=== PATIENT | male | born 1945 | race African-American/Black ===

== ENCOUNTER 2018-02-23 10:36 | Inpatient (IN) | payer MEDICARE ==
[~2018-02-23] VITALS: Ht 175.3 cm; Wt 93.9 kg
[2018-02-23 12:27] LABS: BASOPHILS % 0.8 % (0.0-1.0); EOSINOPHILS # (AUTO) 0.1 (0.0-0.4); EOSINOPHILS % 2.1 % (0.0-6.0); HEMATOCRIT 43.5 % (38.2-49.6); HEMOGLOBIN 14.3 g/dL (14.0-18.0); LYMPHOCYTES # (AUTO) 2.2 (1.0-3.2); LYMPHOCYTES % 42.6 % (18.0-39.1); MEAN CORPUSCULAR HGB CONC 32.9 g/dL (31-35); MEAN CORPUSCULAR VOLUME 94.2 fL (81-99); MONOCYTES # (AUTO) 0.6 (0.2-0.8); MONOCYTES % 11.4 % (4.4-11.3); NEUTROPHILS # (AUTO) 2.2 (2.1-6.9); NEUTROPHILS % 42.9 % (38.7-80.0); PLATELET COUNT 173 x10e3/uL (140-360); RED BLOOD COUNT 4.62 x10e6/uL (4.3-5.7); RED CELL DISTRIBUTION WIDTH 13.7 % (11.7-14.4)
[2018-02-23] MEDS ORDERED: ASPIRIN 325 MG TAB PO ONE (12:30)
[2018-02-23 12:41] LABS: ALANINE AMINOTRANSFERASE 68 IU/L (0-55); ALBUMIN/GLOBULIN RATIO 1.2 (0.8-2.0); ALKALINE PHOSPHATASE 42 IU/L (40-150); ANION GAP 12.6 mmol/L (8-16); BLOOD UREA NITROGEN 23 mg/dL (7-26); BUN/CREATININE RATIO 18 (6-25); CALCIUM 9.6 mg/dL (8.4-10.2); CARBON DIOXIDE 25 mmol/L (22-29); CHLORIDE 106 mmol/L (98-107); CREATINE KINASE 554 IU/L (30-200); CREATININE, SERUM 1.26 mg/dL (0.72-1.25); EST GLOMERULAR FILTRATION RATE > 60 ML/MIN (60-); GLUCOSE 112 mg/dL (74-118); POTASSIUM 3.6 mmol/L (3.5-5.1); SODIUM 140 mmol/L (136-145)
--- NOTE | 2018-02-23 12:50 | Diagnostic Imaging Report ---
PROCEDURE: X-RAY CHEST, TWO VIEWS COMPARISON: None. INDICATIONS: CHEST PAIN FINDINGS: The lungs are well-inflated. No focal airspace consolidation or pneumothorax. Trace bilateral pleural effusions versus basal pleural thickening.. Cardiomegaly with prominence of the central pulmonary vasculature. No acute osseous abnormality. CONCLUSION: Cardiomegaly with pulmonary venous congestion. Dictated by: Luis Brito M.D. on 02/23/2018 at 12:53 Electronically approved by: Luis Brito M.D. on 02/23/2018 at 12:53
[2018-02-23] MEDS ORDERED: HYDRALAZINE HCL 20 MG/ML VIAL IV STA (13:11)
[2018-02-23] MEDS: FUROSEMIDE INJ 10 MG/ML 4 ML VIAL IV SCH ×2 (14:23→15:48)
[2018-02-23] MEDS ORDERED: HYDRALAZINE HCL 20 MG/ML VIAL IV PRN (15:00)
[2018-02-23] MEDS ORDERED: LISINOPRIL10 MG PO (15:49)
[2018-02-23 15:59] VITALS: BP 153/77
[2018-02-23 16:03] VITALS: BP 153/77
[2018-02-23] MEDS ORDERED: FUROSEMIDE INJ 10 MG/ML 4 ML VIAL IV NR (17:00)
[2018-02-23] MEDS ORDERED: POTASSIUM CHLORIDE 20 MEQ TAB CR PO NR (17:00)
[2018-02-23 17:11] LABS: FREE THYROXINE INDEX 2.6463 (1.4-3.8); THYROID STIMULATING HORMONE 2.558 uIU/mL (0.350-4.940)
[2018-02-23] MEDS: CARVEDILOL 3.125 MG TAB PO SCH (17:16)
--- NOTE | 2018-02-23 18:54 | Consultation ---
DATE OF CONSULTATION: February 23, 2018 HISTORY OF PRESENT ILLNESS: This is a 72-year-old male with history of hypertension. The patient presents to [facility] ER with complaints of shortness of breath x3 weeks. Chest x-ray noted with pulmonary congestion and elevated BNP, so cardiology was consulted. The patient seen in room in no acute distress. Reports for the past 3 weeks he has been having progressive shortness of breath, early satiety, dry cough and lower extremity edema. He went to go see his PCP, Dr. Madi Ventura, and apparently he had an x-ray done and results were going to be given him in several days; however, the patient's symptoms progressed and this morning he decided that he needed to come to the ER for further evaluation. The patient denies any chest pains; however, as mentioned he does complain of lower extremity, early satiety, dry cough, and one-pillow orthopnea. PAST MEDICAL HISTORY: Hypertension. PAST SURGICAL HISTORY: Small bowel obstruction in April 2017, status post lysis of adhesions. Bilateral total knee arthroplasty. Bilateral cataracts. SOCIAL HISTORY: He is employed at [employer]. He works in the [employer]. He is . He denies any alcohol or tobacco use. FAMILY HISTORY: His mother is at the age of 60, unknown reason. Father , however, unknown. Has one sister with history of diabetes. He has one brother with history of prostate cancer. HOME MEDICATIONS: Aspirin 81 mg and lisinopril 10 mg once a day. ALLERGIES: NO KNOWN DRUG ALLERGIES. REVIEW OF SYSTEMS: GENERAL: Denies any weight gains, weight changes, any fevers, chills, and he denies skin holliday no rashes or bruises noted. HEENT: Denies any head trauma, any vision changes. No nausea or vomiting. No blurry vision or double vision. No hearing loss. No vertigo or tinnitus. No nasal stuffiness, sneezing, epistaxis. Denies any sore throat, swollen neck, bleeding gums. CARDIAC: Denies any chest pains, positive for dyspnea on exertion as above. Positive for orthopnea. Positive for PND. Positive for lower extremity edema. RESPIRATORY: Positive for shortness of breath. Positive for cough, nonproductive. He had one episode of hemoptysis on Thursday after a coughing spell, no more since then. GI: Denies any nausea or vomiting, any diarrhea or constipation. Denies any melena or hematemesis. : Positive for frequency, urgency, nocturia. Denies any dysuria. MUSCULOVASCULAR: Positive for lower extremity edema. Denies any claudication. MUSCULOSKELETAL: Generalized joint pains, especially bilateral knees. NEUROLOGIC: Denies any numbness, tingling, tremors, paralysis, fainting, blackouts or seizures. HEMATOLOGY: Denies any bruising. ENDOCRINE: Denies any heat or cold intolerance or any polyuria or polydipsia, polyphagia. PHYSICAL EXAMINATION GENERAL: Height 69 inches, weight 207 pounds. Appears to age, a well-developed man in no acute distress. CURRENT VITAL SIGNS: Temperature 97, pulse 100, respiratory rate 18, blood pressure 133/77. Sat 99% on room air. SKIN: No rashes or bruises noted. HEENT: Normocephalic. Pupils are equal and reactive. Extraocular movement intact. No thyromegaly noted. Oral mucosa is pink. Positive for JVD. No carotid bruits noted. HEART: Regular rate and rhythm. Soft systolic murmur heard in the right upper sternal border. PMI above 5th intercostal space. LUNGS: Bilateral breath sounds with crackles, 2/3 down bilaterally. ABDOMEN: Soft. Nontender. Nondistended. No organomegaly noted. MUSCULOSKELETAL: Good muscle strength throughout. There is lower extremity edema about +2. VASCULAR: There are +2 bilateral radial pulses, +1 DP and PT pulses bilaterally. NEURO: Cranial nerves II through XII seem intact. LABORATORY DATA: White count 5.1, hemoglobin 14, hematocrit 43, platelets 173,000, sodium 140, potassium 3.9, chloride 106, bicarb 25, BUN 23, creatinine 1.29. Troponin initial 0.082. BNP 936. IMAGING: Chest x-ray showing cardiomegaly with pulmonary venous congestion. EKGs showing sinus tachycardia with inverted T waves in inferior leads and also in lateral leads. ASSESSMENT 1. Acute systolic heart failure. 2. Hypertension. 3. Abnormal EKG. 4. Coronary artery disease very likely in this patient. PLAN: The patient presents with progressive shortness of breath, orthopnea and PND, lower extremity edema consistent with acute systolic heart failure with elevated BNP and pulmonary congestion on x-ray. The patient will be started on heart failure therapy, lisinopril 5 mg daily, Coreg 3.125 mg b.i.d. Lasix has been initiated. Continue Lasix therapy. Currently the patient reports breathing better since initial Lasix given. Will obtain echo which has been ordered. Will be read by cardiology attending. Continue telemetry monitoring. Will obtain a lipid panel and a TSH. Also, given the patient's symptoms and abnormal EKG, will plan for stress test tomorrow. Thank you very much for this consult. Will continue to evaluate the patient and adjust cardiac therapy as course takes. SEEN AND EXAMINED ADVANCED CHF, MOST LIKELY 2/2 TO CAD Dictated by: Luis Valdes NP Job#: [id number] SABI
[2018-02-23 20:00] VITALS: BP_SYST 114; BP_SYST 135; BP_DIAS 62; BP_DIAS 66
[2018-02-23] MEDS: LEVALBUTEROL HCL SOLN NEBU 0.63 MG/3 ML NEB INH SCH (20:00)
[2018-02-23 20:30] VITALS: BP 114/66
[2018-02-23] MEDS: HEPARIN SOD (PORCINE) 5,000 UNIT/ML VIAL SC SCH (20:30)
[2018-02-23] MEDS: BENZONATATE 100 MG CAP PO SCH (20:30)
[2018-02-23 21:06] LABS: CREATINE KINASE MB 7.4 ng/mL (0-5.0)
[2018-02-24] VITALS (7 sets, daily range): BP systolic 105–161; BP diastolic 66–97
[2018-02-24] MEDS: LEVALBUTEROL HCL SOLN NEBU 0.63 MG/3 ML NEB INH SCH ×4 (02:00→20:32)
[2018-02-24 06:42] LABS: BASOPHILS % 0.9 % (0.0-1.0); EOSINOPHILS # (AUTO) 0.2 (0.0-0.4); EOSINOPHILS % 4.8 % (0.0-6.0); HEMATOCRIT 43.6 % (38.2-49.6); HEMOGLOBIN 14.3 g/dL (14.0-18.0); LYMPHOCYTES # (AUTO) 1.8 (1.0-3.2); MEAN CORPUSCULAR HEMOGLOBIN 30.8 pg (28-32); MEAN CORPUSCULAR HGB CONC 32.8 g/dL (31-35); MEAN CORPUSCULAR VOLUME 93.8 fL (81-99); MONOCYTES # (AUTO) 0.6 (0.2-0.8); MONOCYTES % 14.3 % (4.4-11.3); NEUTROPHILS # (AUTO) 1.7 (2.1-6.9); NEUTROPHILS % 38.8 % (38.7-80.0); PLATELET COUNT 163 x10e3/uL (140-360); RED BLOOD COUNT 4.65 x10e6/uL (4.3-5.7); RED CELL DISTRIBUTION WIDTH 14.1 % (11.7-14.4)
[2018-02-24 07:05] LABS: CREATINE KINASE MB 5.2 ng/mL (0-5.0)
[2018-02-24 07:14] LABS: ANION GAP 15.4 mmol/L (8-16); BLOOD UREA NITROGEN 24 mg/dL (7-26); BUN/CREATININE RATIO 18 (6-25); CALCIUM 9.7 mg/dL (8.4-10.2); CARBON DIOXIDE 27 mmol/L (22-29); CHLORIDE 107 mmol/L (98-107); CREATININE, SERUM 1.31 mg/dL (0.72-1.25); EST GLOMERULAR FILTRATION RATE > 60 ML/MIN (60-); GLUCOSE 114 mg/dL (74-118); POTASSIUM 4.4 mmol/L (3.5-5.1); SODIUM 145 mmol/L (136-145)
[2018-02-24 07:27] LABS: CHOL/HDL RATIO 3.9 (3.9-4.7)
[2018-02-24 07:48] LABS: THYROID STIMULATING HORMONE 1.567 uIU/mL (0.350-4.940)
[2018-02-24] MEDS: BENZONATATE 100 MG CAP PO SCH ×3 (09:00→21:29)
[2018-02-24] MEDS: LISINOPRIL 10 MG TAB PO SCH (09:00)
[2018-02-24] MEDS: ASPIRIN 325 MG TAB PO SCH (09:00)
[2018-02-24] MEDS: CARVEDILOL 3.125 MG TAB PO SCH ×2 (09:00→17:06)
[2018-02-24] MEDS: FUROSEMIDE INJ 10 MG/ML 4 ML VIAL IV SCH ×2 (09:00→17:06)
[2018-02-24] MEDS ORDERED: LISINOPRIL 10 MG TAB PO SCH (09:00)
[2018-02-24] MEDS: HEPARIN SOD (PORCINE) 5,000 UNIT/ML VIAL SC SCH ×2 (09:01→21:29)
--- NOTE | 2018-02-24 09:11 | History and Physical ---
A patient of Dr. Chadwick Ventura, referred by Dr. Ventura to the emergency room. Admitted with a diagnosis of congestive heart failure. He gives a history of progressive shortness of breath and cough over a 3-week period. Cough caused some pain, particularly on the left side. He also vomited once and coughed a speck of blood according to . He has had knee replacements. He was last seen several years ago when he had a small-bowel obstruction which resolved with NG drainage. He has never smoked, does not drink, works at . His medications include aspirin, lisinopril, hydrochlorothiazide. PHYSICAL EXAMINATION GENERAL: A well-developed black male in no acute distress, looking his stated age. HEAD: Normocephalic, atraumatic. EYES: Extraocular movements intact. LUNGS: Bilateral rales, left greater than right. HEART: Somewhat irregular rhythm. ABDOMEN: Nontender. EXTREMITIES: Nonedematous. VITAL SIGNS: Temperature 97, respirations 18, blood pressure 153/77. PLAN: Therapy of congestive heart failure. Cardiology opinion. Job#: [id number] EV
[2018-02-24] MEDS ORDERED: REGADENOSON 0.4 MG/5 ML SYR IV ONE (10:07)
--- NOTE | 2018-02-24 13:14 | Cardiology Report ---
DATE OF STUDY: February 24, 2018 NUCLEAR STRESS TEST TITLE OF THE TEST: Lexiscan nuclear cardiac stress test. TECHNICAL DETAILS: This was resting stress protocol. For the resting images, 10.8 millicuries of Myoview were given. Half an hour after that, proper SPECT imaging and scanning and processing were done. For the stress part, patient given 0.4 mg Lexiscan followed by 31.8 millicuries of Myoview. Proper imaging, scanning and processing were done. There were no complications. EKG: There were ST-T segment changes with injection of Lexiscan. Blood pressure remained stable at 130/80, heart rate in the 90s. NUCLEAR IMAGES: A: Perfusion: Resting images: Showed the presence of multiple defects in almost all segments. Stress images: There were again multiple defects in multi-level. However, this looks to be more by comparison to the resting images. B. Volumes: End-diastolic volume of 168, end-systolic volume of 138, with left ventricular ejection fraction of 18%. SEGMENTAL WALL MOTION: Severe hypokinesis and dyskinesis in all segments. IMPRESSION: 1. Very and very and very high risk, nuclear stress test consistent with multiple defects and presence of scar and ischemia with predominance of scar. 2. Markedly enlarged left ventricle with ejection fraction of 18% and segmental wall motion abnormality. Job#: [id number] EV MTDD
[2018-02-25] VITALS (7 sets, daily range): BP systolic 105–138; BP diastolic 56–85
[2018-02-25 06:30] LABS: EOSINOPHILS # (AUTO) 0.2 (0.0-0.4); EOSINOPHILS % 4.6 % (0.0-6.0); HEMATOCRIT 44.5 % (38.2-49.6); HEMOGLOBIN 14.8 g/dL (14.0-18.0); LYMPHOCYTES # (AUTO) 1.6 (1.0-3.2); LYMPHOCYTES % 40.3 % (18.0-39.1); MEAN CORPUSCULAR HGB CONC 33.3 g/dL (31-35); MEAN CORPUSCULAR VOLUME 93.3 fL (81-99); MONOCYTES # (AUTO) 0.5 (0.2-0.8); MONOCYTES % 11.5 % (4.4-11.3); NEUTROPHILS # (AUTO) 1.7 (2.1-6.9); NEUTROPHILS % 42.3 % (38.7-80.0); PLATELET COUNT 173 x10e3/uL (140-360); RED BLOOD COUNT 4.77 x10e6/uL (4.3-5.7); RED CELL DISTRIBUTION WIDTH 13.8 % (11.7-14.4)
[2018-02-25 07:11] LABS: ALANINE AMINOTRANSFERASE 51 IU/L (0-55); ALBUMIN 3.6 g/dL (3.5-5.0); ALBUMIN/GLOBULIN RATIO 1.1 (0.8-2.0); ALKALINE PHOSPHATASE 41 IU/L (40-150); ANION GAP 13.6 mmol/L (8-16); BLOOD UREA NITROGEN 22 mg/dL (7-26); BUN/CREATININE RATIO 17 (6-25); CALCIUM 9.5 mg/dL (8.4-10.2); CARBON DIOXIDE 28 mmol/L (22-29); CHLORIDE 104 mmol/L (98-107); CREATININE, SERUM 1.27 mg/dL (0.72-1.25); EST GLOMERULAR FILTRATION RATE > 60 ML/MIN (60-); GLUCOSE 144 mg/dL (74-118); POTASSIUM 3.6 mmol/L (3.5-5.1); SODIUM 142 mmol/L (136-145)
[2018-02-25] MEDS: LEVALBUTEROL HCL SOLN NEBU 0.63 MG/3 ML NEB INH SCH ×2 (08:04→14:00)
[2018-02-25] MEDS: LISINOPRIL 10 MG TAB PO SCH (08:20)
[2018-02-25] MEDS: ASPIRIN 325 MG TAB PO SCH (08:20)
[2018-02-25] MEDS: BENZONATATE 100 MG CAP PO SCH ×3 (08:20→21:22)
[2018-02-25] MEDS: CARVEDILOL 3.125 MG TAB PO SCH ×2 (08:20→17:01)
[2018-02-25] MEDS: FUROSEMIDE INJ 10 MG/ML 4 ML VIAL IV SCH (08:20)
[2018-02-25] MEDS: HEPARIN SOD (PORCINE) 5,000 UNIT/ML VIAL SC SCH ×2 (12:10→22:35)
[2018-02-25] MEDS ORDERED: LISINOPRIL10 MG PO (14:14)
[2018-02-25] MEDS ORDERED: ASPIRIN325 MG PO (14:14)
[2018-02-25] MEDS ORDERED: FUROSEMIDE40 MG PO (14:14)
[2018-02-25] MEDS ORDERED: COREG3.125 MG PO (14:14)
[2018-02-25] MEDS ORDERED: TESSALON PERLE100 MG PO (14:14)
[2018-02-25] MEDS ORDERED: FUROSEMIDE 40 MG TAB PO SCH (18:00)
[2018-02-25] MEDS ORDERED: ATORVASTATIN 20 MG TAB PO SCH (21:00)
[2018-02-25] MEDS ORDERED: ATORVASTATIN 40 MG TAB PO SCH (21:00)
[2018-02-26 00:30] VITALS: BP 124/80
--- NOTE | 2018-02-26 12:41 | Discharge Summary ---
TRANSFER NOTE Patient of Dr. Chadwick Ventura Patient admitted with shortness of breath felt to be in congestive heart failure. Nonsmoker. No history of alcohol use. History of small-bowel obstruction related to adhesions approximately 1 year ago requiring laparoscopic surgery. On this occasion, he was felt to have congestive heart failure. He had been short of breath for approximately 3 weeks. Unable to work at [employer]. Previously well. He was seen by Dr. Phipps, who felt he had a cardiomyopathy. Nuclear stress test reveals the presence of multiple defects in almost all segments. Left ventricular ejection fraction was estimated at 18% with dyskinesia of all segments. Left ventricle was markedly enlarged. He presented with shortness of breath and edema and elevated BNP, and was referred to the emergency room by his family doctor, Dr. Ventura. In addition to edema, he had noted early satiety, nonproductive cough and orthopnea. He has had bilateral total knee arthroplasties, bilateral cataract surgery. He has never smoked or drank. His home medications have included aspirin and lisinopril. Cardiac catheterization was discussed. Poor prognosis was discussed with the patient. He was treated for congestive heart failure. Family requested transferred to [facility]. This was arranged for the patient. DrTalia transferred. DISCHARGE MEDICATIONS 1. Aspirin 325 mg. 2. Lipitor 40 mg. 3. Tessalon Perles. 4. Coreg 6.5 mg b.i.d. 5. Lasix 40 b.i.d. 6. Subcutaneous heparin 5000 subcutaneous q.12 h. 7. Lisinopril 5 mg. He is transferred to [facility] for continued care and heart failure evaluation. LABORATORY: He was not anemic. Hemoglobin was 14.3. He did have elevated CPK of 346. MB of 5.2. Troponins were normal. BNP was over 1000. Cholesterol 101, HDL 39. TSH 3.9. RICKI TINAJERO MD Job#: [id number] RI cc:MD CHADWICK REED MD
--- OUTSIDE RECORDS SUMMARY | 2018-06-09 13:31 | XMS REPORT ---
Author Author [facility] Address Unknown Phone Unavailable Care Team Providers Care Internal Audit Consultant Name Role Phone RICKI TINAJERO Unavailable Unavailable Problems This patient has no known problems. Allergies, Adverse Reactions, Alerts This patient has no known allergies or adverse reactions. Medications This patient has no known medications. Results Test Description Test Time Test Comments Text Results Atomic Results Result Comments Stress Test - Treadmill ONLY 2018-02-24 12:39:00 [place] [id number] Patient Name : KRISTEN LICEA MR #: [id number] : 1945 Age/Sex: 72/M Adm Physician : RICKI TINAJERO MD Admit Date : 02/23/18 Location : MED/SURG Room/Bed : [facility] REPORT: Cardiology Report DATE OF STUDY: February 24, 2018 NUCLEAR STRESS TEST TITLE OF THE TEST: Lexiscan nuclear cardiac stress test. TECHNICAL DETAILS: This was resting stress protocol. For the resting images, 10.8 millicuries of Myoview were given. Half an hour after that, proper SPECT imaging and scanning and processing were done. For the stress part, patient given 0.4 mg Lexiscan followed by 31.8 millicuries of Myoview. Proper imaging, scanning and processing were done. There were no complications. EKG: There were ST-T segment changes with injection of Lexiscan. Blood pressure remained stable at 130/80, heart rate in the 90s. NUCLEAR IMAGES: A: Perfusion: Resting images: Showed the presence of multiple defects in almost all segments. Stress images: There were again multiple defects in multi-level. However, this looks to be more by comparison to the resting images. B. Volumes: End-diastolic volume of 168, end-systolic volume of 138, with left ventricular ejection fraction of 18%. SEGMENTAL WALL MOTION: Severe hypokinesis and dyskinesis in all segments. IMPRESSION: 1. Very and very and very high risk, nuclear stress test consistent with multiple defects and presence of scar and ischemia with predominance of scar. 2. Markedly enlarged left ventricle with ejection fraction of 18% and segmental wall motion abnormality. DD: 2017 12:39 Job#: [id number] EV Signature Date Dictated By: SEBASTIAN LARA MD Transcribed By: [facility] on 02/24/18 <Electronically signed by SEBASTIAN LARA MD><<Signature on File>>02/25/18 7824 COPY TO: CHEST 2 VIEWS 2018-02-23 12:53:00 [place] [address] Patient Name: KRISTEN LICEA MR #: [id number] : 1945 Age/Sex: 72/M Req #: [id number] Adm Physician: Ordered by: CHRISSY YOO MD Report #: [id number] Location: ER Room/Bed: Procedure: [id number] DX/CHEST 2 VIEWS Exam Date: 02/23/18 Exam Time: 1220 REPORT STATUS: Signed PROCEDURE: X-RAY CHEST, TWO VIEWS COMPARISON: None. INDICATIONS: CHEST PAIN FINDINGS: The lungs are well-inflated. No focal airspace consolidation or pneumothorax. Trace bilateral pleural effusions versus basal pleural thickening.. Cardiomegaly with prominence of the central pulmonary vasculature. No acute osseous abnormality. CONCLUSION: Cardiomegaly with pulmonary venous congestion. Dictated by: Ricki Fox M.D. on 02/23/2018 at 12:53 Electronically approved by: Ricki Fox M.D. on 02/23/2018 at 12:53 Dictated By: RICKI FOX MD 1253 Transcribed By: BHARGAV on 02/23/18 1253 COPY TO: CHRISSY YOO MD
== END 2018-02-25 23:29 | disposition short-term general hospital (02) | DRG 293 ==
LOC: ER 10:36 → ERHOLD 14:00 → MED/SURG 15:09
PROVIDERS: ADMIT Internal Medicine Pulmonary Disease; ATTEND Internal Medicine Pulmonary Disease
DX: I11.0 Hypertensive heart disease with heart failure (principal); I50.21 Acute systolic (congestive) heart failure; I25.10 Atherosclerotic heart disease of native coronary artery without angina pectoris; I42.8 Other cardiomyopathies
CPT/HCPCS: 36415; 71046; 78452; 80048; 80053; 80061; 82550; 82553; 83880; 84436; 84443; 84479; 84484; 85025; 93005; 93017; 93306; 94640; 99284; A9502; J0360; J1644; J1940